=== PATIENT | female | born 1950 | race African-American/Black ===

== ENCOUNTER 2025-01-17 21:39 | Inpatient (IN) | payer MEDICARE, OTHER ==
[2025-01-17 23:00] LABS: HEMATOCRIT 13.9 % (34.1-44.9); HEMOGLOBIN 4.4 g/dL (11.2-15.7); MCHC 31.7 g/dl (32.2-35.5); MEAN CELL VOLUME 86.3 fl (79.4-94.8); MEAN PLT VOLUME 11.4 fl (9.4-12.3); PLATELET COUNT 143 x10^3/uL (182-369); RDW 17.6 % (12.4-16.6)
[2025-01-18 00:28] LABS: VENOUS BASE EXCESS -0.1 mmol/L (-2-2); VENOUS O2 SATURATION 43.2 % (70-80); VENOUS PCO2 48.5 mmHg (38-52); VENOUS PH 7.341 (7.310-7.410)
[2025-01-18 00:31] LABS: INR 1.35 (0.83-1.09); PROTHROMBIN TIME (PATIENT) 14.7 SEC (9.7-13.0)
[2025-01-18 00:34] LABS: ACTIVATED PTT 27.2 SECONDS (25.2-36.5)
[2025-01-18 00:48] LABS: CHLORIDE 93 mmol/L (98-107); MAGNESIUM 2.4 mg/dL (1.8-2.4); SODIUM 134 mmol/L (136-145)
[2025-01-18 00:50] LABS: CALCIUM 13.9 mg/dL (8.5-10.1)
[2025-01-18 00:51] LABS: ALBUMIN 1.6 g/dl (3.4-5.0); CO2 26 mmol/L (21-32); GLUCOSE,RANDOM 83 mg/dL (74-106)
[2025-01-18 00:55] LABS: CREATININE 1.7 mg/dL (0.55-1.3); N-TERMINAL BNP 7381.1 pg/ml (5-125); SGOT/AST 172 U/L (15-37); SGPT/ALT 243 U/L (13-61); TOT PROT 8.1 g/dl (6.4-8.2)
[2025-01-18] MEDS ORDERED: VANCOMYCIN 750 MG in DEXTROSE 5%-WATER - 150 ML IVPB ONE (01:25)
[2025-01-18 02:03] LABS: ANION GAP 15 mmol/L (4-13); BLOOD UREA NITROGEN 142.8 mg/dL (7-18); POTASSIUM 2.8 mmol/L (3.5-5.1)
[2025-01-18 02:33] LABS: LACTIC ACID 3.7 mmol/L (0.4-2.0)
[2025-01-18 03:00] LABS: ALK PHOS 3394 U/L (45-117)
[2025-01-18] MEDS: SODIUM CHLORIDE 0.9% 500 ML INFUS.BAG IV ONE (03:00)
[2025-01-18] MEDS: MEROPENEM 1 GM in DEXTROSE 5%-WATER 100 ML IVPB ONE (03:00)
[2025-01-18] MEDS ORDERED: MEROPENEM 1 GM VIAL (RESTRICTED TO ID) IVPB ONE (03:03)
[2025-01-18] MEDS ORDERED: DEXTROSE 5%-WATER 100 ML IVPB ONE (03:04)
[2025-01-18] MEDS ORDERED: levETIRAcetam 500 MG/5 ML ORAL SOLUTION (UNIT-DOSE CUPS) GT SCH (03:30)
[2025-01-18] MEDS: VANCOMYCIN/WATER FOR INJ (PEG) 750 MG/150 ML BAG IVPB ONE (03:40)
[2025-01-18] MEDS: CALCITONIN - SALMON SYNTHETIC 400 UNIT/2 ML VIAL SQ SCH (05:10)
[2025-01-18] MEDS ORDERED: HONEY TP SCH (06:00)
[2025-01-18 06:38] LABS: LACTIC ACID 3.5 mmol/L (0.4-2.0)
[2025-01-18] MEDS: KCL 10 MEQ IVPB 10 MEQ/100 ML INFUS.BAG IVPB SCH ×2 (08:40→12:55)
[2025-01-18] MEDS: ARTIFICIAL TEARS OPHTHALMIC DROPS OD SCH ×2 (09:00→09:24)
[2025-01-18] MEDS: LACTATED RINGERS SOLUTION 1,000 ML/1,000 ML INFUS.BAG IV SCH ×3 (09:00→16:05)
[2025-01-18] MEDS: SODIUM CHLORIDE 1,000 ML IV STA (09:24)
[2025-01-18 09:30] LABS: EPI CELLS 2 /uL (0-25.1); HYALINE CASTS 0 /uL (0-3.1); PH,URINE 5.5 (5.0-8.0); URINE APPEARANCE TURBID; URINE BACTERIA 2297 /uL (0-1359); URINE BILIRUBIN NEGATIVE (NEGATIVE); URINE COLOR DK YELLOW; URINE GLUCOSE (UA) NEGATIVE (NEGATIVE); URINE KETONE NEGATIVE (NEGATIVE); URINE LEUK ESTERASE 2+ (NEGATIVE); URINE NITRITE NEGATIVE (NEGATIVE); URINE PROTEIN 2+ (NEGATIVE); URINE UROBILINOGEN 0.2 mg/dL (0.2-1.0); URINE WBC 887 /uL (0-25.8)
[2025-01-18] MEDS ORDERED: Lacosamide 50 MG/5 ML ORAL SOLUTION UNIT CUPS GT SCH (10:00)
[2025-01-18 10:07] LABS: URINE RBC 45.7 /uL (0-23.9)
[2025-01-18 10:08] LABS: URINE CRYSTALS PRESENT /hpf
[2025-01-18 10:19] LABS: HEMOGLOBIN 4.7 g/dL (11.2-15.7)
[2025-01-18 10:21] LABS: HEMATOCRIT 14.4 % (34.1-44.9); MCHC 32.6 g/dl (32.2-35.5); MEAN CELL VOLUME 86.2 fl (79.4-94.8); MEAN PLT VOLUME 11.9 fl (9.4-12.3); PLATELET COUNT 148 x10^3/uL (182-369); RDW 15.9 % (12.4-16.6)
[2025-01-18] MEDS: MUPIROCIN 2% TOPICAL OINTMENT 22 GM TUBE TP SCH (10:30)
[2025-01-18] MEDS: SODIUM HYPOCHLORITE 0.5% 473 ML- BULK BOTTLE TP SCH (10:45)
[2025-01-18 10:48] LABS: CHLORIDE 97 mmol/L (98-107); SODIUM 136 mmol/L (136-145)
[2025-01-18 10:51] LABS: ALBUMIN 1.3 g/dl (3.4-5.0); ANION GAP 15 mmol/L (4-13); CALCIUM 12.4 mg/dL (8.5-10.1); CO2 24 mmol/L (21-32); GLUCOSE,RANDOM 71 mg/dL (74-106)
[2025-01-18 10:53] LABS: SGOT/AST 135 U/L (15-37); SGPT/ALT 196 U/L (13-61)
[2025-01-18 10:54] LABS: CREATININE 1.7 mg/dL (0.55-1.3)
[2025-01-18 10:55] LABS: BILIRUBIN,TOTAL 1.9 mg/dL (0.2-1); MAGNESIUM 2.2 mg/dL (1.8-2.4); TOT PROT 6.8 g/dl (6.4-8.2)
[2025-01-18 10:56] LABS: BILIRUBIN,DIRECT 1.4 mg/dL (0.0-0.2); PHOSPHOROUS 6.8 mg/dL (2.5-4.9)
[2025-01-18] MEDS: POTASSIUM CHLORIDE ORAL LIQUID 20 MEQ/15 ML PO ONE (10:58)
[2025-01-18] MEDS ORDERED: ZINC SULFATE 220 MG CAPSULE (FP) ONE (11:20)
[2025-01-18] MEDS ORDERED: ASCORBIC ACID 500 MG TABLET (FP) ONE (11:20)
[2025-01-18] MEDS ORDERED: levETIRAcetam 500 MG/5 ML ORAL SOLUTION (UNIT-DOSE CUPS) ONE (11:20)
[2025-01-18] MEDS ORDERED: LEVOTHYROXINE NA 75 MCG TABLET (FP) ONE (11:21)
[2025-01-18] MEDS ORDERED: POTASSIUM CHLORIDE ORAL LIQUID 20 MEQ/15 ML ONE (11:21)
[2025-01-18 11:22] LABS: LACTIC ACID 4.4 mmol/L (0.4-2.0)
[2025-01-18 11:22] LABS: ALK PHOS 1875 U/L (45-117); BLOOD UREA NITROGEN 141.1 mg/dL (7-18)
[2025-01-18] MEDS: LEVOTHYROXINE NA 75 MCG TABLET (FP) GT SCH (11:30)
[2025-01-18] MEDS: ASCORBIC ACID 500 MG TABLET (FP) GT SCH (11:45)
[2025-01-18] MEDS: levETIRAcetam 500 MG/5 ML ORAL SOLUTION (UNIT-DOSE CUPS) GT SCH (12:00)
[2025-01-18] MEDS: POTASSIUM CHLORIDE ORAL LIQUID 20 MEQ/15 ML GT ONE (12:00)
[2025-01-18] MEDS: ZINC SULFATE 220 MG CAPSULE (FP) GT SCH (12:05)
[2025-01-18] MEDS: MIDODRINE HCL 2.5 MG TABLET GT SCH (12:05)
[2025-01-18] MEDS ORDERED: MEROPENEM 500 MG VIAL (RESTRICTED TO ID) IVPB ONE (12:37)
[2025-01-18] MEDS ORDERED: KCL 10 MEQ IVPB 10 MEQ/100 ML INFUS.BAG IVPB ONE ×3 (12:37→14:51)
[2025-01-18] MEDS: MEROPENEM 500 MG in DEXTROSE 5%-WATER 100 ML IVPB SCH ×2 (12:45→19:15)
[2025-01-18] MEDS: Lacosamide 50 MG/5 ML ORAL SOLUTION UNIT CUPS GT SCH ×2 (15:15→16:30)
[2025-01-18] MEDS ORDERED: Lacosamide 50 MG/5 ML ORAL SOLUTION UNIT CUPS ONE (16:15)
[2025-01-18 19:20] LABS: LACTIC ACID 3.3 mmol/L (0.4-2.0)
[2025-01-18] MEDS: DENOSUMAB 60 MG/ML DISP.SYRIN SQ ONE (21:31)
[2025-01-18 21:38] LABS: HEMATOCRIT 21.2 % (34.1-44.9); HEMOGLOBIN 7.4 g/dL (11.2-15.7); MCHC 34.9 g/dl (32.2-35.5); MEAN CELL VOLUME 81.5 fl (79.4-94.8); PLATELET COUNT 106 x10^3/uL (182-369); RDW 14.1 % (12.4-16.6)
[2025-01-18 22:00] LABS: CHLORIDE 98 mmol/L (98-107); POTASSIUM 4.1 mmol/L (3.5-5.1); SODIUM 134 mmol/L (136-145)
[2025-01-18 22:02] LABS: ALBUMIN 1.3 g/dl (3.4-5.0); ANION GAP 16 mmol/L (4-13); CALCIUM 11.6 mg/dL (8.5-10.1); CO2 20 mmol/L (21-32)
[2025-01-18 22:03] LABS: GLUCOSE,RANDOM 61 mg/dL (74-106)
[2025-01-18 22:05] LABS: SGOT/AST 132 U/L (15-37); SGPT/ALT 181 U/L (13-61)
[2025-01-18 22:06] LABS: CREATININE 1.7 mg/dL (0.55-1.3)
[2025-01-18 22:07] LABS: BILIRUBIN,TOTAL 2.1 mg/dL (0.2-1); BLOOD UREA NITROGEN 144.8 mg/dL (7-18); TOT PROT 6.7 g/dl (6.4-8.2)
[2025-01-18 22:19] LABS: LACTIC ACID 3.1 mmol/L (0.4-2.0)
[2025-01-18 22:28] LABS: ALK PHOS 1676 U/L (45-117)
[2025-01-19] MEDS: VANCOMYCIN/WATER FOR INJ (PEG) 750 MG/150 ML BAG IVPB SCH (03:23)
[2025-01-19 04:19] LABS: HEMATOCRIT 27.4 % (34.1-44.9); HEMOGLOBIN 9.9 g/dL (11.2-15.7); MCHC 36.1 g/dl (32.2-35.5); MEAN CELL VOLUME 80.1 fl (79.4-94.8); MEAN PLT VOLUME 11.4 fl (9.4-12.3); PLATELET COUNT 97 x10^3/uL (182-369); RDW 13.5 % (12.4-16.6)
[2025-01-19 04:36] LABS: CHLORIDE 98 mmol/L (98-107); POTASSIUM 5.9 mmol/L (3.5-5.1); SODIUM 133 mmol/L (136-145)
[2025-01-19 04:38] LABS: CALCIUM 10.7 mg/dL (8.5-10.1)
[2025-01-19 04:39] LABS: ANION GAP 14 mmol/L (4-13); CO2 21 mmol/L (21-32); GLUCOSE,RANDOM 62 mg/dL (74-106); MAGNESIUM 2.3 mg/dL (1.8-2.4)
[2025-01-19 04:42] LABS: CREATININE 1.7 mg/dL (0.55-1.3); PHOSPHOROUS 7.8 mg/dL (2.5-4.9)
[2025-01-19 04:50] LABS: BLOOD UREA NITROGEN 148.2 mg/dL (7-18)
[2025-01-19 12:05] LABS: HEMOGLOBIN 9.2 g/dL (11.2-15.7)
[2025-01-19 12:07] LABS: HEMATOCRIT 25.3 % (34.1-44.9); MCHC 36.4 g/dl (32.2-35.5); MEAN CELL VOLUME 79.1 fl (79.4-94.8); MEAN PLT VOLUME 11.4 fl (9.4-12.3); PLATELET COUNT 103 x10^3/uL (182-369); RDW 13.8 % (12.4-16.6)
[2025-01-19] MEDS: VANCOMYCIN 750 MG in DEXTROSE 5%-WATER - 150 ML IVPB SCH (12:15)
[2025-01-19] MEDS: MEROPENEM 500 MG in DEXTROSE 5%-WATER 100 ML IVPB SCH ×2 (12:15→17:11)
[2025-01-19 12:26] LABS: CHLORIDE 99 mmol/L (98-107); POTASSIUM 4.1 mmol/L (3.5-5.1); SODIUM 134 mmol/L (136-145)
[2025-01-19 12:32] LABS: ALBUMIN 1.2 g/dl (3.4-5.0); ANION GAP 15 mmol/L (4-13); CALCIUM 10.3 mg/dL (8.5-10.1); CO2 20 mmol/L (21-32); GLUCOSE,RANDOM 107 mg/dL (74-106)
[2025-01-19 12:33] LABS: MAGNESIUM 2.2 mg/dL (1.8-2.4)
[2025-01-19 12:35] LABS: CREATININE 1.7 mg/dL (0.55-1.3)
[2025-01-19 12:37] LABS: BILIRUBIN,TOTAL 1.9 mg/dL (0.2-1); SGPT/ALT 151 U/L (13-61); TOT PROT 6.2 g/dl (6.4-8.2)
[2025-01-19 13:09] LABS: ALK PHOS 1459 U/L (45-117); BLOOD UREA NITROGEN > 150.0 mg/dL (7-18)
[2025-01-19 13:10] LABS: SGOT/AST 94 U/L (15-37)
[2025-01-19] MEDS: SODIUM CHLORIDE 1,000 ML IV SCH (14:45)
[2025-01-19 18:06] LABS: FREE KAPPA,SERUM 109.3 mg/L (3.3-19.4); IG A QN SERUM. 3122 mg/dL (64-422)
[2025-01-20 06:53] LABS: HEMOGLOBIN 10.8 g/dL (11.2-15.7)
[2025-01-20 06:55] LABS: ABSOLUTE IMMATURE GRANULOCYTES 0.32 x10^3/uL (0.0-0.031); BASOPHILS # 0.07 x10^3/uL (0.01-0.08); EOSINOPHIL % 0.3 % (0.7-5.8); EOSINOPHILS # 0.04 x10^3/uL (0.04-0.36); MCHC 34.8 g/dl (32.2-35.5); MEAN CELL VOLUME 79.7 fl (79.4-94.8); MEAN PLT VOLUME 11.1 fl (9.4-12.3); MONOCYTE # 0.47 x10^3/uL (0.24-0.86); MONOCYTE % 3.3 % (4.7-12.5); RDW 14.7 % (12.4-16.6)
[2025-01-20 07:18] LABS: CHLORIDE 99 mmol/L (98-107); POTASSIUM 4.8 mmol/L (3.5-5.1); SODIUM 134 mmol/L (136-145)
[2025-01-20 07:27] LABS: ALBUMIN 1.2 g/dl (3.4-5.0); ANION GAP 18 mmol/L (4-13); CALCIUM 9.3 mg/dL (8.5-10.1); CO2 17 mmol/L (21-32); PLATELET COUNT 82 x10^3/uL (182-369)
[2025-01-20 07:28] LABS: GLUCOSE,RANDOM 63 mg/dL (74-106); MAGNESIUM 2.3 mg/dL (1.8-2.4)
[2025-01-20 07:30] LABS: CREATININE 1.7 mg/dL (0.55-1.3); SGOT/AST 110 U/L (15-37); SGPT/ALT 158 U/L (13-61)
[2025-01-20 07:32] LABS: BILIRUBIN,TOTAL 2.1 mg/dL (0.2-1); TOT PROT 6.4 g/dl (6.4-8.2)
[2025-01-20 08:02] LABS: ALK PHOS 1627 U/L (45-117); BLOOD UREA NITROGEN 169.9 mg/dL (7-18)
[2025-01-20] MEDS: DEXTROSE 5%-0.45% SALINE 1,000 ML IV SCH (10:06)
[2025-01-20] MEDS: SEVELAMER CARBONATE 0.8 GM POWDER PACKET PEG SCH (12:59)
[2025-01-20] MEDS: VANCOMYCIN 1 GM PREMIX (F) 1 GM/200 ML BAG IVPB ONE (12:59)
[2025-01-20] MEDS: VANCOMYCIN/WATER FOR INJ (PEG) 1 GM/200 ML BAG IVPB ONE (14:55)
[2025-01-21 11:03] LABS: HEMATOCRIT 26.7 % (34.1-44.9); HEMOGLOBIN 9.5 g/dL (11.2-15.7); MCHC 35.6 g/dl (32.2-35.5); MEAN CELL VOLUME 79.5 fl (79.4-94.8); MEAN PLT VOLUME 11.4 fl (9.4-12.3); PLATELET COUNT 96 x10^3/uL (182-369); RDW 15.2 % (12.4-16.6)
[2025-01-21 11:30] LABS: CHLORIDE 100 mmol/L (98-107); POTASSIUM 3.9 mmol/L (3.5-5.1); SODIUM 132 mmol/L (136-145)
[2025-01-21 11:32] LABS: ALBUMIN 1.1 g/dl (3.4-5.0); ANION GAP 19 mmol/L (4-13); CO2 14 mmol/L (21-32); GLUCOSE,RANDOM 121 mg/dL (74-106); MAGNESIUM 1.9 mg/dL (1.8-2.4)
[2025-01-21 11:35] LABS: CREATININE 1.7 mg/dL (0.55-1.3); SGOT/AST 124 U/L (15-37); SGPT/ALT 152 U/L (13-61)
[2025-01-21 11:37] LABS: BILIRUBIN,TOTAL 2.5 mg/dL (0.2-1); TOT PROT 5.7 g/dl (6.4-8.2)
[2025-01-21 12:44] LABS: ALK PHOS 1643 U/L (45-117); BLOOD UREA NITROGEN 166.4 mg/dL (7-18); CALCIUM 7.6 mg/dL (8.5-10.1)
[2025-01-21] MEDS: SODIUM CHLORIDE 0.45% 1,000 ML IV SCH (13:43)
[2025-01-21] MEDS: MEROPENEM-0.9% SODIUM CHLORIDE 500 MG/50 ML BAG IVPB SCH (17:08)
[2025-01-22 07:12] LABS: HEMATOCRIT 28.3 % (34.1-44.9); HEMOGLOBIN 10.1 g/dL (11.2-15.7); MCHC 35.7 g/dl (32.2-35.5)
[2025-01-22 07:14] LABS: MEAN CELL VOLUME 79.1 fl (79.4-94.8); PLATELET COUNT 103 x10^3/uL (182-369); RDW 15.1 % (12.4-16.6)
[2025-01-22 07:33] LABS: CHLORIDE 99 mmol/L (98-107); POTASSIUM 4.5 mmol/L (3.5-5.1); SODIUM 131 mmol/L (136-145)
[2025-01-22 07:38] LABS: ALBUMIN 1.1 g/dl (3.4-5.0); ANION GAP 21 mmol/L (4-13); CO2 11 mmol/L (21-32); GLUCOSE,RANDOM 67 mg/dL (74-106); MAGNESIUM 1.9 mg/dL (1.8-2.4)
[2025-01-22 07:41] LABS: CREATININE 1.9 mg/dL (0.55-1.3); SGOT/AST 166 U/L (15-37); SGPT/ALT 167 U/L (13-61)
[2025-01-22 07:42] LABS: TOT PROT 5.8 g/dl (6.4-8.2)
[2025-01-22 07:43] LABS: BILIRUBIN,TOTAL 3.2 mg/dL (0.2-1)
[2025-01-22 07:58] LABS: ALK PHOS 2170 U/L (45-117); BLOOD UREA NITROGEN 182.5 mg/dL (7-18); CALCIUM 6.7 mg/dL (8.5-10.1)
[2025-01-22 11:48] LABS: GAMMA GLUTAMYL TRANSPEPTIDASE 1050 U/L (5-85)
[2025-01-22 11:51] LABS: BILIRUBIN,DIRECT 2.5 mg/dL (0.0-0.2)
[2025-01-22] MEDS: SODIUM BICARBONATE 8.4% - 75 MEQ in SODIUM CHLORIDE 0.45% 1,000 ML IV SCH (15:30)
[2025-01-22] MEDS: IOHEXOL (OMNIPAQUE IV) 350 MG/ML - 100 ML BOTTLE PEG ONE (16:26)
[2025-01-22] MEDS: SODIUM BICARBONATE 650 MG TABLET PO SCH (16:29)
[2025-01-22] MEDS: CALCIUM GLUCONATE 10% - 1,000 MG/10 ML VIAL IVPB ONE (19:41)
[2025-01-23 06:45] LABS: HEMOGLOBIN 9.5 g/dL (11.2-15.7)
[2025-01-23 06:47] LABS: HEMATOCRIT 26.4 % (34.1-44.9); MEAN CELL VOLUME 77.4 fl (79.4-94.8); MEAN PLT VOLUME 11.2 fl (9.4-12.3); PLATELET COUNT 93 x10^3/uL (182-369); RDW 15.3 % (12.4-16.6)
[2025-01-23 06:49] LABS: CHLORIDE 100 mmol/L (98-107); POTASSIUM 4.1 mmol/L (3.5-5.1); SODIUM 133 mmol/L (136-145)
[2025-01-23 06:53] LABS: ALBUMIN 1.2 g/dl (3.4-5.0); ANION GAP 20 mmol/L (4-13); CO2 12 mmol/L (21-32); GLUCOSE,RANDOM 60 mg/dL (74-106); MAGNESIUM 1.8 mg/dL (1.8-2.4)
[2025-01-23 06:56] LABS: CREATININE 1.9 mg/dL (0.55-1.3); SGOT/AST 262 U/L (15-37); SGPT/ALT 203 U/L (13-61)
[2025-01-23 06:57] LABS: BILIRUBIN,TOTAL 4.2 mg/dL (0.2-1)
[2025-01-23 06:58] LABS: TOT PROT 5.7 g/dl (6.4-8.2)
[2025-01-23 07:54] LABS: ALK PHOS 1707 U/L (45-117); BLOOD UREA NITROGEN 178.7 mg/dL (7-18); CALCIUM 6.6 mg/dL (8.5-10.1)
[2025-01-23] MEDS: SODIUM BICARBONATE 8.4% 50 MEQ/50 ML DISP.SYRIN IVPUSH SCH (10:31)
[2025-01-23 11:36] LABS: HEPATITIS B SURF AG NON-MATERN NON-REACTIVE (NONREACTIVE)
[2025-01-23 12:05] LABS: HCV DIAGNOSTIC IN-HOUSE W/RFLX NON-REACTIVE (NONREACTIVE)
[2025-01-23] MEDS: SODIUM BICARBONATE 8.4% - 75 MEQ in SODIUM CHLORIDE 0.45% 1,000 ML IV SCH (13:38)
[2025-01-23] MEDS: SODIUM BICARBONATE 650 MG TABLET PO SCH (14:00)
[2025-01-23 16:45] VITALS: BMI 20.1
[2025-01-23] MEDS: MIDODRINE HCL 5 MG TABLET GT SCH ×2 (16:50→17:50)
[2025-01-23] MEDS: SODIUM CHLORIDE 1,000 ML IV STA ×2 (17:39→21:22)
[2025-01-23] MEDS: MIDODRINE HCL 5 MG TABLET GT ONE ×2 (17:50→21:26)
[2025-01-23] MEDS ORDERED: DEXTROSE 50%-WATER 25 GM/50 ML DISP.SYRIN ONE ×2 (17:55→17:58)
[2025-01-23] MEDS: DEXTROSE 50%-WATER - 25 GM/50 ML VIAL IVPUSH ONE ×2 (18:00)
[2025-01-23] MEDS: SODIUM BICARBONATE 8.4% - 75 MEQ in DEXTROSE 5%-0.45% SALINE 925 ML IV SCH (19:27)
[2025-01-24 11:20] LABS: HEMOGLOBIN 10.4 g/dL (11.2-15.7)
[2025-01-24 11:22] LABS: HEMATOCRIT 29.5 % (34.1-44.9); MCHC 35.3 g/dl (32.2-35.5); MEAN CELL VOLUME 79.3 fl (79.4-94.8); MEAN PLT VOLUME 10.7 fl (9.4-12.3); PLATELET COUNT 64 x10^3/uL (182-369); RDW 15.9 % (12.4-16.6)
[2025-01-24 11:44] LABS: CHLORIDE 101 mmol/L (98-107); POTASSIUM 4.1 mmol/L (3.5-5.1); SODIUM 136 mmol/L (136-145)
[2025-01-24 11:47] LABS: ANION GAP 20 mmol/L (4-13); CO2 15 mmol/L (21-32); GLUCOSE,RANDOM 97 mg/dL (74-106)
[2025-01-24 11:49] LABS: MAGNESIUM 1.8 mg/dL (1.8-2.4)
[2025-01-24 11:50] LABS: CREATININE 1.9 mg/dL (0.55-1.3); SGOT/AST 298 U/L (15-37); SGPT/ALT 171 U/L (13-61)
[2025-01-24 11:52] LABS: BILIRUBIN,TOTAL 5.3 mg/dL (0.2-1); TOT PROT 5.2 g/dl (6.4-8.2)
[2025-01-24 11:59] LABS: CALCIUM 5.8 mg/dL (8.5-10.1)
[2025-01-24 12:01] LABS: BLOOD UREA NITROGEN 178.7 mg/dL (7-18)
[2025-01-24 12:04] LABS: PHOSPHOROUS 8.8 mg/dL (2.5-4.9)
[2025-01-24 12:08] LABS: ALK PHOS 2196 U/L (45-117)
[2025-01-24] MEDS: MIDODRINE HCL 5 MG TABLET GT SCH (14:58)
[2025-01-24] MEDS ORDERED: MIDODRINE HCL 5 MG TABLET GT ONE (21:12)
[2025-01-25 07:06] LABS: CHLORIDE 102 mmol/L (98-107); POTASSIUM 3.2 mmol/L (3.5-5.1); SODIUM 139 mmol/L (136-145)
[2025-01-25 07:11] LABS: ALBUMIN 0.9 g/dl (3.4-5.0); ANION GAP 22 mmol/L (4-13); CO2 15 mmol/L (21-32); GLUCOSE,RANDOM 103 mg/dL (74-106); MAGNESIUM 1.7 mg/dL (1.8-2.4)
[2025-01-25 07:14] LABS: PHOSPHOROUS 8.6 mg/dL (2.5-4.9); SGOT/AST 220 U/L (15-37); SGPT/ALT 121 U/L (13-61)
[2025-01-25 07:15] LABS: BILIRUBIN,TOTAL 5.1 mg/dL (0.2-1)
[2025-01-25 07:16] LABS: TOT PROT 4.8 g/dl (6.4-8.2)
[2025-01-25 07:31] LABS: ALK PHOS 2018 U/L (45-117); CALCIUM 5.4 mg/dL (8.5-10.1)
[2025-01-25 07:34] LABS: BLOOD UREA NITROGEN 187.5 mg/dL (7-18)
[2025-01-25 09:00] LABS: HEMATOCRIT 20.4 % (34.1-44.9); HEMOGLOBIN 6.8 g/dL (11.2-15.7); MCHC 33.3 g/dl (32.2-35.5); MEAN CELL VOLUME 82.9 fl (79.4-94.8); MEAN PLT VOLUME 12.2 fl (9.4-12.3); PLATELET COUNT 55 x10^3/uL (182-369); RDW 17.2 % (12.4-16.6)
[2025-01-25] MEDS: MAGNESIUM SULF 50% (8.12 MEQ/2 ML-1 GM VIAL) IVPB ONE (09:54)
[2025-01-25] MEDS: POTASSIUM CHLORIDE ORAL LIQUID 20 MEQ/15 ML GT ONE (16:56)
[2025-01-25 21:30] LABS: HEMOGLOBIN 10.4 g/dL (11.2-15.7)
[2025-01-25 21:31] LABS: HEMATOCRIT 29.1 % (34.1-44.9); MCHC 35.7 g/dl (32.2-35.5); MEAN CELL VOLUME 80.6 fl (79.4-94.8); PLATELET COUNT 41 x10^3/uL (182-369); RDW 16.3 % (12.4-16.6)
[2025-01-26 08:05] LABS: CHLORIDE 105 mmol/L (98-107); SODIUM 141 mmol/L (136-145)
[2025-01-26 08:08] LABS: POTASSIUM 2.7 mmol/L (3.5-5.1)
[2025-01-26 08:24] LABS: ALBUMIN 0.9 g/dl (3.4-5.0); ANION GAP 20 mmol/L (4-13); CO2 16 mmol/L (21-32)
[2025-01-26 08:25] LABS: GLUCOSE,RANDOM 148 mg/dL (74-106)
[2025-01-26 08:27] LABS: SGOT/AST 148 U/L (15-37); SGPT/ALT 72 U/L (13-61)
[2025-01-26 08:29] LABS: BILIRUBIN,TOTAL 5.9 mg/dL (0.2-1); CALCIUM 5.9 mg/dL (8.5-10.1)
[2025-01-26 08:31] LABS: TOT PROT 4.5 g/dl (6.4-8.2)
[2025-01-26 08:42] LABS: HEMATOCRIT 28.7 % (34.1-44.9); HEMOGLOBIN 10.5 g/dL (11.2-15.7); MCHC 36.6 g/dl (32.2-35.5); MEAN CELL VOLUME 76.9 fl (79.4-94.8)
[2025-01-26 08:43] LABS: PLATELET COUNT 37 x10^3/uL (182-369); RDW 14.7 % (12.4-16.6)
[2025-01-26 08:47] LABS: ALK PHOS 1959 U/L (45-117)
[2025-01-26 08:48] LABS: BLOOD UREA NITROGEN 186.9 mg/dL (7-18)
[2025-01-26] MEDS: POTASSIUM CHLORIDE ORAL LIQUID 20 MEQ/15 ML GT ONE (08:55)
[2025-01-26] MEDS: KCL 10 MEQ IVPB 10 MEQ/100 ML INFUS.BAG IVPB SCH (08:55)
[2025-01-26] MEDS: ALBUMIN HUMAN 25% 12.5 GM/50 ML VIAL IV SCH (15:30)
[2025-01-26] MEDS ORDERED: SODIUM CHLORIDE 250 ML IV PRN (15:31)
[2025-01-27 09:09] LABS: HEMATOCRIT 25.5 % (34.1-44.9); MCHC 35.3 g/dl (32.2-35.5); MEAN CELL VOLUME 79.7 fl (79.4-94.8); PLATELET COUNT 21 x10^3/uL (182-369); RDW 15.3 % (12.4-16.6)
[2025-01-27 09:18] LABS: CHLORIDE 105 mmol/L (98-107); POTASSIUM 3.6 mmol/L (3.5-5.1); SODIUM 141 mmol/L (136-145)
[2025-01-27] MEDS: DEXTROSE 50%-WATER - 25 GM/50 ML VIAL IVPUSH ONE (09:33)
[2025-01-27 09:39] LABS: ANION GAP 17 mmol/L (4-13); CO2 19 mmol/L (21-32); GLUCOSE,RANDOM 55 mg/dL (74-106)
[2025-01-27] MEDS ORDERED: SODIUM CHLORIDE 250 ML IV PRN (09:39)
[2025-01-27 09:42] LABS: CREATININE 1.7 mg/dL (0.55-1.3); SGOT/AST 127 U/L (15-37); SGPT/ALT 50 U/L (13-61)
[2025-01-27 09:44] LABS: ALBUMIN 1.6 g/dl (3.4-5.0); BILIRUBIN,TOTAL 8.3 mg/dL (0.2-1); BLOOD UREA NITROGEN 148.2 mg/dL (7-18); CALCIUM 6.2 mg/dL (8.5-10.1); TOT PROT 4.8 g/dl (6.4-8.2)
[2025-01-27 10:25] LABS: ALK PHOS 1765 U/L (45-117)
[2025-01-27] MEDS ORDERED: DEXTROSE 50%-WATER 25 GM/50 ML DISP.SYRIN ONE ×2 (15:18→17:27)
[2025-01-27] MEDS: DEXTROSE 50%-WATER - 25 GM/50 ML VIAL IVPUSH PRN (15:22)
[2025-01-27] MEDS: SODIUM CHLORIDE 1,000 ML IV STA (17:05)
[2025-01-27] MEDS: NOREPINEPHRINE 0.9 % NACL 8 MG/250 ML BAG IVPB SCH (17:15)
[2025-01-27] MEDS: DEXTROSE 50%-WATER 25 GM/50 ML DISP.SYRIN IVPUSH ONE (19:14)
[2025-01-27] MEDS: VASopressin 40 UNITS/100 ML BAG IV SCH ×2 (19:16→19:48)
[2025-01-27 21:09] LABS: ARTERIAL BLD GAS O2 SATURATION 83.1 % (95-98); ARTERIAL BLOOD GAS BASE EXCESS -13.8 mmol/L (-2-2); ARTERIAL BLOOD GAS PO2 58.2 mmHg (80-100); RDW 15.4 % (12.4-16.6)
[2025-01-27 21:11] LABS: HEMATOCRIT 23.1 % (34.1-44.9); HEMOGLOBIN 8.4 g/dL (11.2-15.7); MCHC 36.4 g/dl (32.2-35.5); MEAN CELL VOLUME 78.6 fl (79.4-94.8); PLATELET COUNT 13 x10^3/uL (182-369)
[2025-01-27 21:27] LABS: CHLORIDE 108 mmol/L (98-107); SODIUM 142 mmol/L (136-145)
[2025-01-27 21:30] LABS: CO2 17 mmol/L (21-32); GLUCOSE,RANDOM 65 mg/dL (74-106); MAGNESIUM 1.7 mg/dL (1.8-2.4)
[2025-01-27] MEDS: DEXTROSE 5%-WATER - 1,000 ML IV SCH (21:30)
[2025-01-27 21:31] LABS: ALBUMIN 1.2 g/dl (3.4-5.0); ANION GAP 17 mmol/L (4-13); BLOOD UREA NITROGEN 144.1 mg/dL (7-18); CALCIUM 5.9 mg/dL (8.5-10.1); POTASSIUM 2.6 mmol/L (3.5-5.1)
[2025-01-27 21:32] LABS: ARTERIAL BLOOD GAS pH 7.173 (7.350-7.450); BILIRUBIN,DIRECT 5.9 mg/dL (0.0-0.2); CREATININE 1.7 mg/dL (0.55-1.3); PHOSPHOROUS 4.8 mg/dL (2.5-4.9); SGOT/AST 124 U/L (15-37); SGPT/ALT 40 U/L (13-61)
[2025-01-27 21:34] LABS: BILIRUBIN,TOTAL 7.3 mg/dL (0.2-1)
[2025-01-27 21:39] LABS: LACTIC ACID 5.4 mmol/L (0.4-2.0)
[2025-01-27 21:49] LABS: ALK PHOS 1421 U/L (45-117)
[2025-01-27] MEDS: DEXMEDETOMIDINE PREMIX 400 MCG/100 ML BAG IVPB SCH (22:27)
[2025-01-27] MEDS: KCL 20 MEQ PREMIX BAG 20 MEQ/100 ML INFUS.BAG IVPB SCH (22:27)
[2025-01-27] MEDS: MUPIROCIN 2% TOPICAL OINTMENT FOR DECOLONIZATION NS SCH (22:28)
[2025-01-27] MEDS: CHLORHEXIDINE GLUCONATE 4% CLEANSER FOR DECOLONIZATION TP SCH (22:29)
[2025-01-27] MEDS: CALCIUM GLUC IN NACL, ISO-OSM 1 GM/50 ML BAG IVPB ONE (22:34)
[2025-01-27] MEDS: HYDROCORTISONE SOD SUCCINATE 100 MG/2 ML VIAL IVPUSH SCH (22:34)
[2025-01-28] MEDS: GENTAMICIN INJECTION 100 MG in SODIUM CHLORIDE 100 ML IVPB ONE (00:28)
[2025-01-28] MEDS: LACTATED RINGERS SOLUTION 1,000 ML/1,000 ML INFUS.BAG IV STA (01:00)
[2025-01-28] MEDS: VANCOMYCIN/WATER FOR INJ (PEG) 1,000 MG/200 ML BAG IVPB ONE (01:26)
[2025-01-28 02:04] VITALS: TEMP 97.3
[2025-01-28 04:44] VITALS: BP 54/19; PULSE 42; RESP 28
[2025-01-29 16:07] LABS: C-ANCA <1:20 titer (Neg:<1:20)
== END 2025-01-28 05:34 | disposition expired | DRG 870 ==
LOC: JER 21:39 → JERBED 01-18 01:12 → OBSVTOIN 01-18 01:12 → J2W 01-18 19:03
PROVIDERS: ADMIT Internal Medicine; ATTEND Internal Medicine
PROC: 5A1955Z Respiratory Ventilation, Greater than 96 Consecutive Hours (ICD-10-PCS; principal; 2025-01-17)
PROC: 30233N1 Transfusion of Nonautologous Red Blood Cells into Peripheral Vein, Percutaneous Approach (ICD-10-PCS; 2025-01-18)
PROC: 06HM33Z Insertion of Infusion Device into Right Femoral Vein, Percutaneous Approach (ICD-10-PCS; 2025-01-26)
PROC: B54BZZA Ultrasonography of Right Lower Extremity Veins, Guidance (ICD-10-PCS; 2025-01-26)
PROC: 5A1D70Z Performance of Urinary Filtration, Intermittent, Less than 6 Hours Per Day (ICD-10-PCS; 2025-01-26)
DX: A41.89 Other specified sepsis (principal); E43 Unspecified severe protein-calorie malnutrition; L89.154 Pressure ulcer of sacral region, stage 4; L89.224 Pressure ulcer of left hip, stage 4; L89.314 Pressure ulcer of right buttock, stage 4; J18.9 Pneumonia, unspecified organism; R53.2 Functional quadriplegia; R65.21 Severe sepsis with septic shock; R64 Cachexia; R18.8 Other ascites; I42.9 Cardiomyopathy, unspecified; N39.0 Urinary tract infection, site not specified; C90.00 Multiple myeloma not having achieved remission; M46.28 Osteomyelitis of vertebra, sacral and sacrococcygeal region; E87.20 Acidosis, unspecified; J96.11 Chronic respiratory failure with hypoxia; R33.9 Retention of urine, unspecified; K21.9 Gastro-esophageal reflux disease without esophagitis; D64.9 Anemia, unspecified; K02.9 Dental caries, unspecified; R79.89 Other specified abnormal findings of blood chemistry; G40.909 Epilepsy, unspecified, not intractable, without status epilepticus; E87.6 Hypokalemia; B95.2 Enterococcus as the cause of diseases classified elsewhere; B96.20 Unspecified Escherichia coli [E. coli] as the cause of diseases classified elsewhere; D57.40 Sickle-cell thalassemia without crisis; D69.6 Thrombocytopenia, unspecified; E03.9 Hypothyroidism, unspecified; E83.52 Hypercalcemia; Z68.20 Body mass index [BMI] 20.0-20.9, adult; Z93.0 Tracheostomy status; Z93.1 Gastrostomy status; Z86.79 Personal history of other diseases of the circulatory system; Z88.1 Allergy status to other antibiotic agents
CPT/HCPCS: 0241U-QW; 36415; 36430; 36600; 71045-TC-FY; 71250-TC; 74176-TC; 76705-TC; 76775-TC; 80048; 80053; 80076; 81003; 81257; 82248; 82272; 82306; 82550; 82784; 82803; 82962; 82977; 83516; 83520; 83605; 83735; 83880; 83883; 83970; 84080; 84100; 84132; 84155; 84165; 84484; 85025; 85027; 85610; 85660; 85730; 86256; 86301; 86704; 86708; 86803; 86850; 86900; 86901; 86922; 87040; 87070; 87077; 87081; 87086; 87186; 87205; 87324; 87340; 87449; 87481; 87517; 87899; 93005; 93010; 93306-TC; 94002; 99285-25; G0480; J0897; J3490; P9047; P9058